=== PATIENT | male | born 1945 | race Caucasian/White ===

== ENCOUNTER 2021-02-12 05:47 | Day surgery (SDC) | payer MEDICARE, BC ==
[2021-02-12] MEDS ORDERED: fentaNYL 100 MCG/2 ML SDV IV ONE ×3 (05:48→07:16)
[2021-02-12] MEDS ORDERED: Midazolam 1 MG/ML 2 ML SDV IV ONE ×3 (05:48→07:18)
[2021-02-12] MEDS ORDERED: Sodium Chloride 0.9% 10 ML Syringe FLUSH PRN (06:00)
[2021-02-12] MEDS ORDERED: Dextrose 5%-0.45% NaCl 1,000 ML IV SCH (06:00)
[2021-02-12] MEDS ORDERED: Midazolam 1 MG/ML 2 ML SDV ONE (06:01)
[2021-02-12] MEDS ORDERED: fentaNYL 100 MCG/2 ML SDV ONE (06:02)
--- NOTE | 2021-02-12 08:20 | OR ---
DATE: 02/12/2021 PROCEDURE: Total colonoscopy, NBI, and cold snare polypectomy. INSTRUMENT USED: [id number] Olympus video colonoscope. PREMEDICATIONS: Fentanyl 100 mcg intravenous, Versed 2 mg intravenous. Nasal O2 cannula. The procedure was done under pulse oximetry, BP recording, and monitoring specialist. INDICATION: The patient with previous colon cancer resection, surveillance colonoscopic examination is done for detection of any polypoid lesions and removal, endoscopic hemostasis therapy if needed. DESCRIPTION OF PROCEDURE: Initial rectal exam was unremarkable. Rigid anoscopy showed small internal hemorrhoids without bleeding from them. The colonoscope was passed with ease. Few diverticula were noted, more so in the left colon. The scope was passed with ease to the ileocecal area. Photographs were taken of the normal-appearing cecum, identified by landmarks of appendiceal orifice and double-bulged ileocecal folds. No bleeding was noted from any of the visualized areas at the commencement of the examination. Bowel preparation was found to be adequate, [place] scale 2 in the regions, total score 6. No stricture. No vascular ectasia. No large isolated ulcerations seen. No evidence of diffuse inflammatory bowel disease in the form of friability, contact bleeding, or ulcerations. Probing the proximal sides of folds and flexures using adequate distention and clearing up the stool material, withdrawal of the scope was made. In the proximal transverse colon, diminutive benign-appearing polyp was noted, NBI views were obtained, photographs were taken, cold snare polypectomy was done, the tissue was retrieved and sent for histopathology. No bleeding was noted from any of the visualized areas at the completion of examination. IMPRESSION: 1. Internal hemorrhoids. 2. Diverticulosis. 3. Diminutive colonic polyp. The patient tolerated the procedure well. [facility] /[id number]
== END 2021-02-12 09:38 | disposition home or self-care (01) ==
LOC: DL.ENDO 05:47
PROVIDERS: ATTEND Internal Medicine Gastroenterology
DX: Z12.11 Encounter for screening for malignant neoplasm of colon (principal); K63.5 Polyp of colon; K64.8 Other hemorrhoids; K57.30 Diverticulosis of large intestine without perforation or abscess without bleeding; Z85.038 Personal history of other malignant neoplasm of large intestine; Z98.890 Other specified postprocedural states
CPT/HCPCS: 45385; J2250; J3010; J7042; 88305